=== PATIENT | female | born 1985 | race African-American/Black ===

== ENCOUNTER 2018-10-29 08:04 | Emergency (ER) | payer OTHER ==
[~2018-10-29] VITALS: Ht 162.6 cm; Wt 118.2 kg
[~2018-10-29 08:04] MED LIST: NAPR-58 PO; NOCURR
[2018-10-29 09:27] VITALS: BP 128/84
[2018-10-29] MEDS ORDERED: KETOROLAC TROMETHAMINE 30 MG/ML VIAL IM ONE (09:45)
[2018-10-29] MEDS ORDERED: OxyCODONE HCL/ACETAMINOPHEN 5-325 MG TABLET PO ONE (09:45)
[2018-10-30] MEDS ORDERED: CYCL10 PO (07:52)
[2018-10-30] MEDS ORDERED: IBUP-2070 PO (07:52)
[2018-10-30] MEDS ORDERED: HYDR-4455 PO (07:52)
== END 2018-10-29 11:04 | disposition home or self-care (01) ==
LOC: EEVIPCON 08:06 → EMS 08:06
DX: M54.5 Low back pain (principal); M54.6 Pain in thoracic spine; F17.210 Nicotine dependence, cigarettes, uncomplicated; Z88.5 Allergy status to narcotic agent
CPT/HCPCS: 96372; 99283; J1885

== ENCOUNTER 2018-10-30 07:45 | Emergency (ER) | payer OTHER ==
[~2018-10-30] VITALS: Ht 170.2 cm; Wt 80.0 kg
[~2018-10-30 07:45] MED LIST changes: -NAPR-58 PO
[2018-10-30] MEDS ORDERED: CYCL10 PO (07:52)
[2018-10-30] MEDS ORDERED: HYDR-4455 PO (07:52)
[2018-10-30] MEDS ORDERED: IBUP-2070 PO (07:52)
[2018-10-30] MEDS: OxyCODONE HCL/ACETAMINOPHEN 5-325 MG TABLET PO ONE (09:49)
[2018-10-30] MEDS: METHOCARBAMOL 500 MG TABLET PO ONE (09:49)
[2018-10-30] MEDS: KETOROLAC TROMETHAMINE 30 MG/ML VIAL IM ONE (09:51)
[2018-10-30 11:42] VITALS: BP 125/73
== END 2018-10-30 11:47 | disposition home or self-care (01) ==
LOC: EMS 07:50
DX: R07.9 Chest pain, unspecified (principal); M54.9 Dorsalgia, unspecified; M54.2 Cervicalgia; G89.29 Other chronic pain; F17.210 Nicotine dependence, cigarettes, uncomplicated; Z88.5 Allergy status to narcotic agent
CPT/HCPCS: 71045; 81002; 81025; 93005; 96372; 99283; J1885

== ENCOUNTER 2020-08-29 19:25 | Observation (INO) | payer MEDICAID, OTHER ==
[~2020-08-29] VITALS: Ht 162.6 cm; Wt 132.0 kg
[2020-08-29 19:25] VITALS: BP 118/60
[~2020-08-29 19:25] MED LIST changes: +CYCL10 PO; +HYDR-4455 PO; +IBUP-2070 PO
== END 2020-08-29 20:40 | disposition home or self-care (01) ==
LOC: 4S 19:25
PROVIDERS: ADMIT Obstetrics & Gynecology; ATTEND Obstetrics & Gynecology
DX: O36.8120 Decreased fetal movements, second trimester, not applicable or unspecified (principal); Z3A.22 22 weeks gestation of pregnancy
CPT/HCPCS: 59025; 99219

== ENCOUNTER 2021-09-05 03:22 | Emergency (ER) | payer MEDICAID ==
[~2021-09-05] VITALS: Ht 162.6 cm; Wt 125.0 kg
[~2021-09-05 03:22] MED LIST changes: -CYCL10 PO; +CYCL10TA17 PO
[2021-09-05] MEDS ORDERED: LIDOCAINE 5% TRANSDERMAL PATCH TD ONE (04:15)
[2021-09-05] MEDS ORDERED: KETOROLAC TROMETHAMINE 30 MG/ML VIAL IM ONE (04:15)
[2021-09-05] MEDS ORDERED: ACETAMINOPHEN 500 MG TABLET PO ONE (04:15)
[2021-09-05 04:45] LABS: APPEARANCE,URINE CLEAR (CLEAR); BILIRUBIN,URINE NEGATIVE (NEGATIVE); GLUCOSE, URINE (UA) NEGATIVE (NEGATIVE); KETONES,URINE NEGATIVE (NEGATIVE); LEUKOCYTE ESTERASE ,URINE NEGATIVE (NEGATIVE); NITRATE,URINE NEGATIVE (NEGATIVE); OCCULT BLOOD,URINE NEGATIVE (NEGATIVE); PROTEIN,URINE NEGATIVE (NEGATIVE)
[2021-09-05] MEDS ORDERED: DIAZEPAM 5 MG TABLET PO ONE (05:15)
[2021-09-05 05:18] VITALS: BP 128/72
[2021-09-05 05:18] LABS: COVID AG,FIA SOURCE NASOPHARYNGEAL
== END 2021-09-05 05:28 | disposition home or self-care (01) ==
LOC: EMS 03:23
DX: S39.012A Strain of muscle, fascia and tendon of lower back, initial encounter (principal); X58.XXXA Exposure to other specified factors, initial encounter; Y93.89 Activity, other specified; Y92.89 Other specified places as the place of occurrence of the external cause; Y99.8 Other external cause status; Z20.822 Contact with and (suspected) exposure to COVID-19
CPT/HCPCS: 81003; 84703; 87426; 96372; 99284; J1885; U0003; 99283

== ENCOUNTER 2021-09-11 22:30 | Emergency (ER) | payer MEDICAID ==
[~2021-09-11] VITALS: Ht 162.6 cm; Wt 125.0 kg
[2021-09-12] VITALS: BP 119/69
== END 2021-09-12 00:24 | disposition home or self-care (01) ==
LOC: EMS 22:30
DX: S61.412A Laceration without foreign body of left hand, initial encounter (principal); F17.210 Nicotine dependence, cigarettes, uncomplicated; Z88.5 Allergy status to narcotic agent; Z91.040 Latex allergy status; W26.0XXA Contact with knife, initial encounter; Y93.89 Activity, other specified; Y92.89 Other specified places as the place of occurrence of the external cause; Y99.8 Other external cause status
CPT/HCPCS: 12001; 99282; Z7502

== ENCOUNTER 2023-02-05 05:11 | Emergency (ER) | payer MEDICAID ==
[~2023-02-05] VITALS: Ht 167.6 cm; Wt 127.3 kg
[~2023-02-05 05:11] MED LIST changes: +CYCL-448 PO; -CYCL10TA17 PO; +IBUP-1492 PO; -IBUP-2070 PO
[2023-02-05 05:25] VITALS: BP 118/76
[2023-02-05] MEDS ORDERED: KETOROLAC TROMETHAMINE 60 MG/2 ML VIAL IM ONE (06:30)
[2023-02-05] MEDS ORDERED: CYCLOBENZAPRINE HCL 10 MG TABLET PO ONE (06:30)
[2023-02-05] MEDS ORDERED: IBUP-1492 PO (07:33)
[2023-02-05] MEDS ORDERED: CYCL-448 PO (07:34)
== END 2023-02-05 07:51 | disposition home or self-care (01) ==
LOC: EMS 05:12
DX: S29.012A Strain of muscle and tendon of back wall of thorax, initial encounter (principal); F17.210 Nicotine dependence, cigarettes, uncomplicated; Z98.890 Other specified postprocedural states; Z91.040 Latex allergy status; Z88.6 Allergy status to analgesic agent; X58.XXXA Exposure to other specified factors, initial encounter; Y93.89 Activity, other specified; Y92.89 Other specified places as the place of occurrence of the external cause; Y99.8 Other external cause status
CPT/HCPCS: 99285; 71045; 84484; 36415; 93005; 96372; J1885

== ENCOUNTER 2023-08-02 06:23 | Emergency (ER) | payer MEDICAID ==
[~2023-08-02] VITALS: Ht 162.6 cm; Wt 129.0 kg
[2023-08-02] MEDS ORDERED: CYCLOBENZAPRINE HCL 10 MG TABLET PO ONE (06:45)
[2023-08-02] MEDS ORDERED: LIDOCAINE 5% TRANSDERMAL PATCH TD ONE (06:45)
[2023-08-02] MEDS ORDERED: KETOROLAC TROMETHAMINE 30 MG/ML VIAL IM ONE (06:45)
[2023-08-02 08:15] VITALS: BP 125/87; PULSE 75; RESP 18; TEMP 98.2
[2023-08-02] MEDS ORDERED: CYCL-448 PO (08:16)
[2023-08-02] MEDS ORDERED: LIDO700A15 TP (08:16)
[2023-08-02] MEDS ORDERED: IBUP-1492 PO (08:16)
== END 2023-08-02 08:30 | disposition home or self-care (01) ==
LOC: EMS 06:26
DX: M62.838 Other muscle spasm (principal); F17.210 Nicotine dependence, cigarettes, uncomplicated; Z98.890 Other specified postprocedural states; Z91.040 Latex allergy status; Z88.6 Allergy status to analgesic agent
CPT/HCPCS: 99283; 96372; J1885

== ENCOUNTER 2023-11-11 08:15 | Emergency (ER) | payer MEDICAID ==
[~2023-11-11] VITALS: Ht 162.6 cm; Wt 125.5 kg
[~2023-11-11 08:15] MED LIST changes: -HYDR-4455 PO; +LIDO700A15 TP
[2023-11-11 08:27] VITALS: BP 136/75; PULSE 92; RESP 16; TEMP 98.3
[2023-11-11 08:31] LABS: COVID AG,FIA SOURCE NASAL SWAB
[2023-11-11 08:54] LABS: INFLUENZA TYPE A NEGATIVE FOR TYPE A (NEGATIVE); INFLUENZA TYPE B NEGATIVE FOR TYPE B (NEGATIVE); SARS-COV2 (COVID) ANTIGEN,FIA Negative (Negative)
[2023-11-11] MEDS ORDERED: AMOX500C2 PO (10:57)
[2023-11-11] MEDS ORDERED: FLUC150T61 PO (10:58)
== END 2023-11-11 11:07 | disposition home or self-care (01) ==
LOC: EMS 08:15
DX: H66.92 Otitis media, unspecified, left ear (principal); F17.210 Nicotine dependence, cigarettes, uncomplicated; Z98.890 Other specified postprocedural states; Z91.040 Latex allergy status; Z88.6 Allergy status to analgesic agent; Z20.822 Contact with and (suspected) exposure to COVID-19
CPT/HCPCS: 71045; 87804; 99284

== ENCOUNTER 2023-11-21 07:41 | Emergency (ER) | payer MEDICAID ==
[~2023-11-21] VITALS: Ht 170.2 cm; Wt 95.5 kg
[~2023-11-21 07:41] MED LIST changes: +AMOX500C2 PO; +FLUC150T61 PO
[2023-11-21] MEDS ORDERED: ACETAMINOPHEN 500 MG TABLET PO ONE (08:00)
[2023-11-21] MEDS ORDERED: GuaiFENesin/D-METHORPHAN [SUGAR-FREE] 200-20MG/10 ML SYRUP UDCUP PO ONE (08:00)
[2023-11-21] MEDS ORDERED: IBUPROFEN 200 MG TABLET PO ONE (08:00)
[2023-11-21 08:12] LABS: COVID AG,FIA SOURCE NASAL SWAB
[2023-11-21 09:00] LABS: INFLUENZA TYPE A NEGATIVE FOR TYPE A (NEGATIVE); INFLUENZA TYPE B NEGATIVE FOR TYPE B (NEGATIVE)
[2023-11-21 09:20] LABS: SARS-COV2 (COVID) ANTIGEN,FIA Positive (Negative)
[2023-11-21 09:47] VITALS: BP 122/2; PULSE 103; RESP 18; TEMP 101
[2023-11-21] MEDS ORDERED: ACET-2080 PO (10:10)
[2023-11-21] MEDS ORDERED: ALBU18HF12 IH (10:10)
[2023-11-21] MEDS ORDERED: GUAIFDM PO (10:10)
[2023-11-21] MEDS ORDERED: IBUP-1554 PO (10:10)
== END 2023-11-21 10:16 | disposition home or self-care (01) ==
LOC: EMS 07:41
DX: U07.1 COVID-19 (principal); J06.9 Acute upper respiratory infection, unspecified; F17.210 Nicotine dependence, cigarettes, uncomplicated; Z98.890 Other specified postprocedural states; Z91.040 Latex allergy status; Z88.6 Allergy status to analgesic agent
CPT/HCPCS: 87804; 99284; Z7502; Z7610

== ENCOUNTER 2024-06-04 03:40 | Emergency (ER) | payer MEDICAID ==
[~2024-06-04] VITALS: Ht 162.6 cm; Wt 127.3 kg
[~2024-06-04 03:40] MED LIST changes: +ACET-2080 PO; +ALBU18HF12 IH; -AMOX500C2 PO; -CYCL-448 PO; -FLUC150T61 PO; +GUAIFDM PO; -IBUP-1492 PO; +IBUP-1554 PO; -LIDO700A15 TP; -NOCURR
[2024-06-04 03:57] VITALS: BP 128/84; PULSE 94; RESP 18; TEMP 98.2
[2024-06-04] MEDS: AMOX TR/POT CLAV 875 MG/125 MG TABLET PO ONE (04:22)
[2024-06-04] MEDS: ACETAMINOPHEN 500 MG TABLET PO ONE (04:22)
[2024-06-04 04:40] LABS: INFLUENZA A-RTPCR,COMBO NEGATIVE (NEGATIVE); INFLUENZA B-RTPCR,COMBO NEGATIVE (NEGATIVE); RESPIRATORY SYNCYTIAL VRS-PCR NEGATIVE (NEGATIVE); SARS COVID19 RTPCR, COMBO NEGATIVE (NEGATIVE)
[2024-06-04] MEDS ORDERED: ACET-3385 PO (04:54)
[2024-06-04] MEDS ORDERED: AMOX-457 PO (04:54)
== END 2024-06-04 05:12 | disposition home or self-care (01) ==
LOC: EMS 03:41
DX: H66.92 Otitis media, unspecified, left ear (principal); J02.9 Acute pharyngitis, unspecified; F17.210 Nicotine dependence, cigarettes, uncomplicated; Z88.5 Allergy status to narcotic agent; Z91.040 Latex allergy status; Z20.822 Contact with and (suspected) exposure to COVID-19
CPT/HCPCS: 99283; 0241U; 87430